=== PATIENT | female | born 1985 | race Caucasian/White ===

== ENCOUNTER 2016-06-18 08:14 | Emergency (ER) | payer BC ==
[2016-06-18] MEDS ORDERED: Fluorescein Sodium TOPICAL* 1 MG TEST ONE (08:28)
[2016-06-18] MEDS ORDERED: Tetracaine 0.5% OPTH.SOL 15ML* BTL ONE (08:28)
[2016-06-18] MEDS ORDERED: BSS OPTH.SOL* BTL ONE (08:28)
--- NOTE | 2016-06-18 08:38 | UC ---
Eye Complaint HPI - HPI Summary HPI Summary: Slept with contacts in night (2 days ago) no eye painful and watering L >R - History of Current Complaint Chief Complaint: UCEye Stated Complaint: EYE ISSUE Time Seen by Provider: 06/18/16 08:22 Hx Obtained From: Patient Hx Last Menstrual Period: 05/26/16 Onset/Duration: Sudden Onset, Lasting Days - 2, Still Present Timing: Constant Severity Initially: Moderate Severity Currently: Moderate Location of Injury: Conjunctiva Character: Foreign Body Sensation Aggravating Factor(s): Contact Lens Alleviating Factor(s): Nothing Associated Signs And Symptoms: Positive: Drainage (Purulent) - Allergies/Home Medications Allergies/Adverse Reactions: Allergies Allergy/AdvReac Type Severity Reaction Status Date / Time Azithromycin Allergy Mild Rash Verified 06/18/16 08:25 Home Medications: Home Medications Ferrous Sulfate [Iron (Ferrous Sulfate)] 1 tab PO DAILY 06/18/16 [History Confirmed 06/18/16] Iud 1 applic IU DAILY 06/18/16 [History Confirmed 06/18/16] PMH/Surg Hx/FS Hx/Imm Hx Previously Healthy: Yes - anemia - Surgical History Surgical History: Yes Surgery Procedure, Year, and Place: TONSILLECTOMY. - Family History Known Family History: Positive: None Negative: Blood Disorder - Social History Occupation: Employed Full-time Lives: With Family Alcohol Use: Occasionally Substance Use Type: None Smoking Status (MU): Never Smoked Tobacco Review of Systems Constitutional: Negative Skin: Negative Eyes: Drainage - L>R, Eye Redness - L>R ENT: Negative Respiratory: Negative Cardiovascular: Negative Gastrointestinal: Negative Genitourinary: Negative Motor: Negative Neurovascular: Negative Musculoskeletal: Negative Neurological: Negative Psychological: Negative All Other Systems Reviewed And Are Negative: Yes Physical Exam Triage Information Reviewed: Yes Appearance: Well-Appearing, No Pain Distress, Well-Nourished Vital Signs Reviewed: Yes Eye Exam: Normal Eyes: Positive: Conjunctiva Inflamed - L>R, Discharge ENT Exam: Normal ENT: Positive: Normal ENT inspection, Hearing grossly normal. Negative: Nasal congestion, Nasal drainage, Tonsillar swelling, Tonsillar exudate, Trismus, Muffled/hoarse voice Dental Exam: Normal Neck exam: Normal Neck: Positive: Supple, Nontender, No Lymphadenopathy Respiratory Exam: Normal Respiratory: Positive: Chest non-tender, Lungs clear, Normal breath sounds, No respiratory distress, No accessory muscle use Cardiovascular Exam: Normal Cardiovascular: Positive: RRR, No Murmur, Pulses Normal, Brisk Capillary Refill Musculoskeletal Exam: Normal Musculoskeletal: Positive: Strength Intact, ROM Intact, No Edema Neurological Exam: Normal Neurological: Positive: Alert, Muscle Tone Normal Psychological Exam: Normal Skin Exam: Normal Procedures - Procedure Summary Procedure Summary: tetracaine applied to both eye with excellent pain relief both eyes stained---right eye with no evidence of ulceration of abrasion left eye corneal ulceration at 4:00 Patient tolerated procedure well and verbalizes understanding of findings Eye Complaint Course/Dx - Course Course Of Treatment: Cipro eye drops, no contact lens, follow with opthom. this week - Differential Dx/Diagnosis Differential Diagnosis/HQI/PQRI: Conjunctivitis, Corneal Abrasion, Other - corneal ulceration Provider Diagnoses: OD Conjuctivitis, OS Corneal ulceration Discharge - Discharge Plan Condition: Stable Disposition: HOME Prescriptions: Ciprofloxacin 0.3% OPTH.LI* [Cipro 0.3% Opth*] 2 drop .SEE ORDER SEE INSTRUCTIONS #1 btl Ciprofloxacin 0.3% OPTH.LI* [Cipro 0.3% Opth*] 2 drop BOTH EYES SEE INSTRUCTIONS #1 btl Patient Education Materials: Corneal Abrasion (ED), Corneal Ulcer (ED), How to Use Eye Drops (ED) Referrals: Sung Raymond MD [Medical Doctor] - 5 Days Additional Instructions: Left eye--Day1-2 drops q 15mins for 6 hours 2 drops q 30mins for remainder of the day Day 2 - 2 drops every hour Day 3-10 2 drops q 4 hours Right eye- Day 1 and 2- 2 drops q 2 hours Day 2-7 - 2 drops q4 hours Use in both eye while awake
[2016-06-18 08:39] VITALS: BP 108/64
== END 2016-06-18 08:57 | disposition home or self-care (01) ==
LOC: UCEAST 08:14
DX: H10.9 Unspecified conjunctivitis (principal); H16.009 Unspecified corneal ulcer, unspecified eye; D64.9 Anemia, unspecified; Z88.3 Allergy status to other anti-infective agents
CPT/HCPCS: 99212; A9270-GY; G0463

== ENCOUNTER 2017-09-26 07:37 | Emergency (ER) | payer BC ==
--- NOTE | 2017-09-26 08:09 | ED ---
- HPI Summary HPI Summary: This patient is a 32 year old F presenting to [facility] with a chief complaint of blood exposure and possible ingestion since 0600. Pt is labor and delivery nurse , and states the vacuum popped off of the infants head while she was holding onto its legs, and blood went all over her face. Pt unsure blood entering her nose, but does endorse tasting blood, and pink tinged spittle. Additionally, she notes closing her eyes, but is unsure if any blood got in before closure. Pt denies any current sores or cuts on her face or in her mouth. She endorses Hepatitis B immunization. Pt endorses woman who blood came from was tested pre- natally for HIV and HEP B and was negative, but has not been tested since. 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 Needlestick: Other - no needlestick, blood splatter from delivering woman Body Fluid Exposure: Blood Treatment HEALTH INSURANCE AGENT: Other - washing and sanitation. - Source Information HIV: Unknown Hepatitis: Unknown PMH/Surg Hx/FS Hx/Imm Hx Endocrine/Hematology History: Denies: Hx Diabetes, Hx Sickle Cell Disease, Hx Thyroid Disease Cardiovascular History: Denies: Hx Hypertension Respiratory History: Denies: Hx Asthma, Hx Chronic Obstructive Pulmonary Disease (COPD) GI History: Denies: Hx Ulcer History: Denies: Hx Dialysis Sensory History: Denies: Hx Legally Blind, Hx Deafness Opthamlomology History: Denies: Hx Legally Blind EENT History: Denies: Hx Deafness Neurological History: Denies: Hx Dementia Psychiatric History: Denies: Hx Autism, Hx Schizophrenia - Surgical History Surgery Procedure, Year, and Place: TONSILLECTOMY. Infectious Disease History: No Infectious Disease History: Denies: Hx Hepatitis, Hx Human Immunodeficiency Virus (HIV), Hx of Known/ Suspected MRSA, History Other Infectious Disease, Traveled Outside the [place] in Last 30 Days - Family History Known Family History: Negative: Blood Disorder - Social History Occupation: Employed Full-time Alcohol Use: Occasionally Substance Use Type: Reports: None Smoking Status (MU): Never Smoked Tobacco Review of Systems Negative: Fever Negative: Other - open sores in mouth Positive: no symptoms reported Negative: Other - open sores on face All Other Systems Reviewed And Are Negative: Yes Physical Exam - Summary Physical Exam Summary: Appearance: The patient is well-nourished in no acute distress and in no acute pain. Skin: The skin is warm and dry and skin color reflects adequate perfusion. HEENT: The head is normocephalic and atraumatic. The pupils are equal and reactive. The conjunctivae are clear and without drainage. Nares are patent and without drainage. Mouth reveals moist mucous membranes and the throat is without erythema and exudate. The external ears are intact. The ear canals are patent and without drainage. The tympanic membranes are intact. Neck: The neck is supple with full range of motion and non-tender. There are no carotid bruits. There is no neck vein distension. Respiratory: Chest is non-tender. Lungs are clear to auscultation and breath sounds are symmetrical and equal. Cardiovascular: Heart is regular rate and rhythm. There is no murmur or rub auscultated. There is no peripheral edema and pulses are symmetrical and equal. Abdomen: The abdomen is soft and non-tender. There are normal bowel sounds heard in all four quadrants and there is no organomegaly palpated. Musculoskeletal: There is no back tenderness noted. Extremities are non-tender with full range of motion. There is good capillary refill. There is no peripheral edema or calf tenderness elicited. Neurological: Patient is alert and oriented to person, place and time. The patient has symmetrical motor strength in all four extremities. Cranial nerves are grossly intact. Deep tendon reflexes are symmetrical and equal in all four extremities. Psychiatric: The patient has an appropriate affect and does not exhibit any anxiety or depression. Triage Information Reviewed: Yes Vital Signs On Initial Exam: Initial Vitals Temp Pulse Resp BP Pulse Ox 98.4 F 83 16 133/82 100 09/26/17 07:39 09/26/17 07:39 09/26/17 07:39 09/26/17 07:39 09/26/17 07:39 Vital Signs Reviewed: Yes Diagnostics - Vital Signs Vital Signs Temp Pulse Resp BP Pulse Ox 09/26/17 07:39 98.4 F 83 16 133/82 100 - Laboratory Lab Statement: Any lab studies that have been ordered have been reviewed, and results considered in the medical decision making process. Needlestick Course/Dx - Course Course Of Treatment: Ms. Kumar suffered what is likely a low risk bodily fluid exposure today. The source has been tested fairly recently and is negative for HIV and hepatitis B. The patient has received hepatitis B vaccination. I spoke with Dr. Whitney about testing the source again and we will wait for the results . She'll follow up with employee health. - Diagnoses Provider Diagnoses: History of exposure to hazardous bodily fluids Discharge - Sign-Out/Discharge Documenting (check all that apply): Patient Departure - discharge - Discharge Plan Condition: Stable Disposition: HOME Patient Education Materials: Body Substance Exposure (ED) Referrals: Kait Beebe MD [Primary Care Provider] - Additional Instructions: Return to the emergency department for any new or worsening symptoms. [place] up with infection control [place]in Jo[place] [facility] [place] [facility] [place] - Billing Disposition and Condition Condition: STABLE Disposition: Home - Attestation Statements Document Initiated by Alexandr: Yes Documenting Scribe: Waylon Giles Provider For Whom Alexandr is Documenting (Include Credential): Dr. Feng Lemon MD Scribe Attestation: I, Waylon Giles, scribed for Dr. Feng Lemon MD on 09/26/17 at 1839. Scribe Documentation Reviewed: Yes Provider Attestation: The documentation as recorded by the Waylon diaz accurately reflects the service I personally performed and the decisions made by me, Dr. Feng Lemon MD
[2017-09-26 09:18] VITALS: BP 112/78
== END 2017-09-26 09:19 | disposition home or self-care (01) ==
LOC: ED 07:37
DX: Z77.21 Contact with and (suspected) exposure to potentially hazardous body fluids (principal)
CPT/HCPCS: 36415; 80074; 86703; 99282

== ENCOUNTER 2018-06-26 21:58 | Emergency (ER) | payer BC, OTHER ==
--- NOTE | 2018-06-26 22:24 | ED ---
Allergic Reaction/Systemic - HPI Summary HPI Summary: The patient is a 33 y/o F presenting to [facility] with a chief complaint of a sudden onset coughing fit starting at 1900. The cough was followed by an erythematous rash on the anterior neck and surrounding her eyes at 2100, and nausea onset approximately 30 minutes later. She additionally had numbness in her tongue and mild throat tightness. She denies dysphagia, SOB, and vomiting. 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 She measured her HR which was in the 120s , but her BP was normal. She hasn't eaten anything unusual today, and her only allergy is azithromycin. - History of Current Complaint Chief Complaint: EDAllergicReaction Time Seen by Provider: 06/26/18 22:13 Hx Obtained From: Patient Hx Last Menstrual Period: 04/21/17 Onset/Duration: Sudden Onset, Started hours ago - at 1900, Still Present Timing: Lasting Hours Severity Initially: Moderate Severity Currently: Moderate Pain Intensity: 0 Pain Scale Used: 0-10 Numeric Location: Other - erythema of anterior neck and surrounding eyes Aggravating Factor(s): Nothing Alleviating Factor(s): Antihistamines - Benadryl Associated Signs And Symptoms: Positive: Other: - POSITIVE: cough, tongue numbness, nausea, mild throat tightening; NEGATIVE: SOB, dysphagia, vomiting - Allergies/Home Medications Allergies/Adverse Reactions: Allergies Allergy/AdvReac Type Severity Reaction Status Date / Time azithromycin Allergy Rash Verified 06/26/18 22:05 PMH/Surg Hx/FS Hx/Imm Hx Endocrine/Hematology History: Denies: Hx Diabetes, Hx Sickle Cell Disease, Hx Thyroid Disease Cardiovascular History: Denies: Hx Hypertension Respiratory History: Denies: Hx Asthma, Hx Chronic Obstructive Pulmonary Disease (COPD) GI History: Denies: Hx Ulcer History: Denies: Hx Dialysis Sensory History: Denies: Hx Legally Blind, Hx Deafness Opthamlomology History: Denies: Hx Legally Blind Neurological History: Denies: Hx Dementia Psychiatric History: Denies: Hx Autism, Hx Schizophrenia - Surgical History Surgery Procedure, Year, and Place: TONSILLECTOMY. Infectious Disease History: No Infectious Disease History: Denies: Hx Hepatitis, Hx Human Immunodeficiency Virus (HIV), Hx of Known/ Suspected MRSA, History Other Infectious Disease, Traveled Outside the [place] in Last 30 Days - Family History Known Family History: Negative: Cardiac Disease, Hypertension, Diabetes, Blood Disorder - Social History Occupation: Employed Full-time Alcohol Use: Occasionally Hx Substance Use: No Substance Use Type: Reports: None Hx Tobacco Use: No Smoking Status (MU): Never Smoked Tobacco Do You Chew or Dip Tobacco: No Have You Chewed or Dipped Tobacco in the LAST YEAR: No Have You Smoked in the Last Year: No Review of Systems Positive: Other - numbness in tongue, mild throat tightening Positive: Cough. Negative: Shortness Of Breath Positive: Nausea. Negative: Vomiting Positive: Other - ertythema on anterior neck and surrounding eyes All Other Systems Reviewed And Are Negative: Yes Physical Exam - Summary Physical Exam Summary: Appearance: well appearing, no pain distress Skin: warm, dry, reflects adequate perfusion, petechiae on neck and face Head/face: normal Eyes: EOMI, JEISON ENT: mucous membranes moist Neck: supple, non-tender Respiratory: CTA, breath sounds present Cardiovascular: RRR, pulses symmetrical Abdomen: non-tender, soft Bowel Sounds: present Musculoskeletal: normal, strength/ROM intact Neuro: normal, sensory motor intact, A&Ox3 Triage Information Reviewed: Yes Vital Signs On Initial Exam: Initial Vitals Temp Pulse Resp BP Pulse Ox 99.1 F 75 18 139/100 97 06/26/18 22:02 06/26/18 22:02 06/26/18 22:02 06/26/18 22:02 06/26/18 22:02 Vital Signs Reviewed: Yes Diagnostics - Vital Signs Vital Signs Temp Pulse Resp BP Pulse Ox 06/26/18 22:02 99.1 F 75 18 139/100 97 - Laboratory Lab Statement: Any lab studies that have been ordered have been reviewed, and results considered in the medical decision making process. Allergic Reaction Course/Dx - Course Course Of Treatment: Nurses notes reviewed. 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 She developed a rash above her eyes after this. She was given a Benadryl which may or may not of helped. She has no other allergy type symptoms. She otherwise feels fine at this point in the rash above her eyes is stress petechia likely from coughing. She does have some eczema under her chin this does not look like an acute process. She will call me back on return to work should she develop any symptoms or chest return to the ER. - Diagnoses Differential Diagnosis/HQI/PQRI: Positive: Angioedema, Bronchospasm, Local Allergic Reaction, Other - Stress petechia, asthma Provider Diagnoses: Cough, Petechial rash Discharge - Sign-Out/Discharge Documenting (check all that apply): Patient Departure - Patient will be discharged home. Patient Received Moderate/Deep Sedation with Procedure: No - Discharge Plan Condition: Improved Disposition: HOME Patient Education Materials: Acute Cough (ED) Referrals: Kait Beebe MD [Primary Care Provider] - Additional Instructions: Call or return to the ER if you develop any symptoms tonight. Hydrocortisone to the rash under the chin as needed. - Billing Disposition and Condition Condition: IMPROVED Disposition: Home - Attestation Statements Document Initiated by Andreiibchao: Yes Documenting Scribe: Kenia Carrizales Provider For Whom Alexandr is Documenting (Include Credential): Dr. Sky Hensley MD Scribe Attestation: Kenia Wagner scribed for Dr. Sky Hensley MD on 06/27/18 at 0358. Scribe Documentation Reviewed: Yes Provider Attestation: The documentation as recorded by the Kenia diaz accurately reflects the service I personally performed and the decisions made by me, Dr. Sky Hensley MD Status of Scribchao Document: Viewed
[2018-06-26 22:33] VITALS: BP 140/90
== END 2018-06-26 22:32 | disposition home or self-care (01) ==
LOC: ED 21:58
DX: R05 Cough (principal); R23.3 Spontaneous ecchymoses; Z88.3 Allergy status to other anti-infective agents
CPT/HCPCS: 99282